=== PATIENT | male | born 1995 | race Caucasian/White ===

== ENCOUNTER 2019-06-13 14:52 | Emergency (ER) | payer SELFPAY ==
--- NOTE | 2019-06-13 15:21 | ER ---
Nurse's Notes [facility] Name: Liu Osborn IV Age: 23 yrs Sex: Male : 1995 Arrival Date: 06/13/2019 Time: 14:56 Bed 24 Private MD: Diagnosis: Dental caries Presentation: 06/13 14:58 Presenting complaint: Patient states: i have an n and off abscess tooth on my R jaw hj area for couple of years now and now its getting worse; reports swelling and pain on R jaw, R neck area and R ear;. Transition of care: patient was not received from another setting of care. Onset of symptoms was June 13, 2019. Risk Assessment: Do you want to hurt yourself or someone else? Patient reports no desire to harm self or others. Initial Sepsis Screen: Does the patient meet any 2 criteria? No. Patient's initial sepsis screen is negative. Does the patient have a suspected source of infection? No. Patient's initial sepsis screen is negative. Care prior to arrival: None. 14:58 Method Of Arrival: Ambulatory 14:58 Acuity: NGHIA 4 hj Historical: - Allergies: 15:00 No Known Allergies; hj - Home Meds: 15:00 None [Active]; hj - PMHx: 15:00 None; hj - PSHx: 15:00 None; hj - Immunization history:: Flu vaccine status is unknown. - Social history:: Smoking status: unknown. - Family history:: not pertinent. - Ebola Screening: : No symptoms or risks identified at this time. - Hospitalizations: : No recent hospitalization is reported. Screenin:04 Abuse screen: Denies threats or abuse. Denies injuries from another. Nutritional mg2 screening: No deficits noted. Tuberculosis screening: No symptoms or risk factors identified. Fall Risk None identified. Assessment: 15:10 General: Appears in no apparent distress. comfortable, Behavior is calm, cooperative. mg2 Pain: Complains of pain in tooth Pain radiates to neck and jaw. Neuro: Level of Consciousness is awake, alert, obeys commands, Oriented to person, place, time, situation. Cardiovascular: Capillary refill < 3 seconds Patient's skin is warm and dry. Respiratory: Airway is patent Respiratory effort is even, unlabored, Respiratory pattern is regular, symmetrical. GI: No signs and/or symptoms were reported involving the gastrointestinal system. : No signs and/or symptoms were reported regarding the genitourinary system. EENT: Reports pain in tooth. Derm: No signs and/or symptoms reported regarding the dermatologic system. Musculoskeletal: Circulation, motion, and sensation intact. Capillary refill < 3 seconds. Vital Signs: 15:00 BP 168 / 99; Pulse 72; Resp 18; Temp 97.6(TE); Pulse Ox 97% on R/A; Weight 122.47 kg; hj Height 6 ft. 0 in. (182.88 cm); Pain 10/10; 15:00 Body Mass Index 36.62 (122.47 kg, 182.88 cm) ED Course: 14:56 Patient arrived in ED. mr 14:59 Triage completed. hj 15:00 Arm band placed on right wrist. hj 15:02 Baljit Richey MD is Attending Physician. rn 15:03 Da Dacosta RN is Primary Nurse. mg2 15:10 No provider procedures requiring assistance completed. Patient did not have IV access mg2 during this emergency room visit. 15:11 Patient has correct armband on for positive identification. Pulse ox on. NIBP on. mg2 Administered Medications: No medications were administered Outcome: 15:09 Discharge ordered by . rn 15:17 Discharged to home ambulatory. mg2 15:17 Condition: stable 15:17 Discharge instructions given to patient, Instructed on discharge instructions, follow up and referral plans. medication usage, Demonstrated understanding of instructions, follow-up care, medications, Prescriptions given X 2. 15:17 Patient left the ED. mg2 Signatures: Sonia King mr Baljit Richey MD MD rn Joaquin, Henry, RN RN Da Dacosta RN RN mg2 Corrections: (The following items were deleted from the chart) 15:02 15:00 Pulse 72bpm; Resp 18bpm; Pulse Ox 97% RA; Temp 97.6F Temporal; 122.47 kg; Height 6 ft. 0 in.; BMI: 36.6; Pain 10/10; hj 15:13 14:58 Acuity: NGHIA 3 hj hj
--- NOTE | 2019-06-13 15:22 | EDPHYS ---
Physician Documentation [facility] Name: Liu Osborn IV Age: 23 yrs Sex: Male : 1995 Arrival Date: 06/13/2019 Time: 14:56 Bed 24 Private MD: ED Physician Baljit Richey HPI: 06/13 15:05 This 23 yrs old Male presents to ER via Ambulatory with complaints of rn Toothache. 15:05 The patient presents with pain. The problem is located in the right mandibular teeth. rn Onset: The symptoms/episode began/occurred at an unknown time. Duration: The symptoms are continuous. Modifying factors: The symptoms are alleviated by nothing, the symptoms are aggravated by chewing. Severity of symptoms: At their worst the symptoms were moderate, in the emergency department the symptoms are unchanged. The patient has experienced similar episodes in the past. Reports chronic dental problems, has had dental infections in past, similar symptoms a month or so ago and got better with abx, last time was worse and involved swelling of cheek. . Historical: - Allergies: 15:00 No Known Allergies; hj - Home Meds: 15:00 None [Active]; hj - PMHx: 15:00 None; hj - PSHx: 15:00 None; hj - Immunization history:: Flu vaccine status is unknown. - Social history:: Smoking status: unknown. - Family history:: not pertinent. - Ebola Screening: : No symptoms or risks identified at this time. - Hospitalizations: : No recent hospitalization is reported. ROS: 15:05 Constitutional: Negative for fever, chills, and weight loss, Eyes: Negative for injury, rn pain, redness, and discharge, ENT: + right mandibular dental pain Neck: Negative for injury, pain, and swelling, Cardiovascular: Negative for chest pain, palpitations, and edema, Respiratory: Negative for shortness of breath, cough, wheezing, and pleuritic chest pain, Neuro: Negative for headache, weakness, numbness, tingling, and seizure. Exam: 15:05 Constitutional: This is a well developed, well nourished patient who is awake, alert, rn and in no acute distress. Ambulatory to room without difficulty or assistance. Head/Face: Normocephalic, atraumatic. Eyes: Pupils equal round and reactive to light, extra-ocular motions intact. Lids and lashes normal. Conjunctiva and sclera are non-icteric and not injected. Cornea within normal limits. Periorbital areas with no swelling, redness, or edema. ENT: + poor general dentition without obvious abscess or swelling, buccal space soft and not edematous Neuro: Awake and alert, GCS 15, oriented to person, place, time, and situation. Cranial nerves II-XII grossly intact. Motor strength 5/5 in all extremities. Sensory grossly intact. Cerebellar exam normal. Normal gait. Vital Signs: 15:00 BP 168 / 99; Pulse 72; Resp 18; Temp 97.6(TE); Pulse Ox 97% on R/A; Weight 122.47 kg; hj Height 6 ft. 0 in. (182.88 cm); Pain 10/10; 15:00 Body Mass Index 36.62 (122.47 kg, 182.88 cm) hj MDM: 15:02 Patient medically screened. rn 15:05 Differential diagnosis: dental caries, dental abscess. Data reviewed: vital signs, rn nurses notes, and as a result, I will discharge patient. Counseling: I had a detailed discussion with the patient and/or guardian regarding: the historical points, exam findings, and any diagnostic results supporting the discharge/admit diagnosis, the need for outpatient follow up, to return to the emergency department if symptoms worsen or persist or if there are any questions or concerns that arise at home. Special discussion: I discussed with the patient/guardian in detail that at this point there is no indication for admission to the hospital. It is understood, however, that if the symptoms persist or worsen the patient needs to return immediately for re-evaluation. Based on the history and exam findings, there is no indication for further emergent testing or inpatient evaluation. I discussed with the patient/guardian the need to see a dentist for further evaluation of the symptoms. Administered Medications: No medications were administered Disposition: 06/13/19 15:09 Discharged to Home. Impression: Dental caries. - Condition is Stable. - Discharge Instructions: Dental Pain. - Prescriptions for Clindamycin HCl 300 mg Oral Capsule - take 1 capsule by ORAL route every 6 hours for 10 days; 40 capsule. Ibuprofen 800 mg Oral Tablet - take 1 tablet by ORAL route every 12 hours As needed take with food; 20 tablet. - Medication Reconciliation Form, Thank You Letter, Antibiotic Education, Prescription Opioid Use form. - Follow up: Private Physician; When: As needed; Reason: Recheck today's complaints, Re-evaluation by your physician. - Problem is an ongoing problem. - Symptoms have improved. Signatures: Baljit Richey MD MD rn Joaquin, Henry, RN RN Da Dacosta RN RN mg2 Corrections: (The following items were deleted from the chart) 15:17 15:09 06/13/2019 15:09 Discharged to Home. Impression: Dental caries. Condition is mg2 Stable. Forms are Medication Reconciliation Form, Thank You Letter, Antibiotic Education, Prescription Opioid Use. Follow up: Private Physician; When: As needed; Reason: Recheck today's complaints, Re-evaluation by your physician. Problem is an ongoing problem. Symptoms have improved. rn
== END 2019-06-13 15:17 | disposition home or self-care (01) ==
LOC: ER 14:52
DX: K02.9 Dental caries, unspecified (principal)
CPT/HCPCS: 99283